=== PATIENT | male | born 1965 | race African-American/Black ===

== ENCOUNTER 2017-08-01 10:06 | Emergency (ER) | payer OTHER ==
[~2017-08-01] VITALS: Ht 165.1 cm; Wt 81.6 kg
[2017-08-01] MEDS ORDERED: VENTOLIN HFA18 GM INH (10:23)
[2017-08-01 10:54] VITALS: BP 119/79
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
--- NOTE | 2017-08-01 12:44 | Diagnostic Imaging Report ---
Indication: Orbital pain and Trauma Technique: Continuous helical transaxial imaging of the maxillofacial structures obtained without intravenous contrast administration. Coronal 2-D reformats were also obtained. Study obtained in a Siemens sensation [address] Automatic Exposure Control was utilized. Total Dose length Product (DLP): 577.[address] Dose Index Volume (CTDIvol): 28.19 mGy Comparison: None Findings: Left ORBIT: There is irregularity and slight diastases of the left frontal zygomatic suture in the lateral superior part of the orbit (for example image 19 series 6). There is a nondisplaced fracture of the lateral orbital wall slightly more posteriorly. In addition there is a mild fracture that is nondisplaced involving the anterior aspect of the orbital floor extending into the anterior wall the left maxillary sinus. There is a nondisplaced fracture of the posterior wall the left maxillary sinus. The zygomatic arch is intact. The left maxillary sinus is clear. The orbit itself is normal. There is no proptosis or retrobulbar hemorrhage. The pterygoids are intact. Right ORBIT: The right maxillary sinus is opacified. There is a fracture of the anterior wall the maxillary sinus and fracture of the medial wall of the right maxillary sinus. There is a nondisplaced fracture of the anterior aspect of the right orbital floor. Pterygoids are intact. There is a comminuted fracture of the right zygoma arch. There is no proptosis or retrobulbar hemorrhage. The globe is intact. IMPRESSION: Acute fractures of aspects of both orbits and maxilla as described above. The CT scanner at [facility] is accredited by the [employer] and the scans are performed using dose optimization techniques as appropriate to a performed exam including Automatic Exposure control.
[2017-08-01] MEDS ORDERED: FLONASE ALLERG9.9 ML NS (12:49)
[2017-08-01] MEDS ORDERED: PSEUDOEPHEDRINE60 MG PO (12:49)
[2017-08-01 15:06] VITALS: BP 129/88
== END 2017-08-01 13:00 | disposition home or self-care (01) ==
LOC: EMR 11:23
DX: R51 Headache (principal); S02.81XA Fracture of other specified skull and facial bones, right side, initial encounter for closed fracture; S02.40CA Maxillary fracture, right side, initial encounter for closed fracture; Y04.2XXA Assault by strike against or bumped into by another person, initial encounter; Y92.9 Unspecified place or not applicable; J45.909 Unspecified asthma, uncomplicated; Z91.013 Allergy to seafood; Z91.018 Allergy to other foods
CPT/HCPCS: 70486; 99283

== ENCOUNTER 2018-06-19 17:45 | Emergency (ER) | payer OTHER ==
[~2018-06-19] VITALS: Ht 165.1 cm; Wt 81.6 kg
[~2018-06-19 17:45] MED LIST: FLONASE ALLERG9.9 ML NS; PSEUDOEPHEDRINE60 MG PO; VENTOLIN HFA18 GM INH
[2018-06-19 17:53] VITALS: BP 108/67
--- NOTE | 2018-06-19 18:00 | NUR ---
ED Nurse Note: pt came in ambulatory from home. pt c/o abdominal pain 4/10 and black stool. pt states he takes multivitamins. pt denies n/v, coffee ground emesis. per pt has no history of gastric ulcers.
[2018-06-19] MEDS ORDERED: Mylanta II UD 30ml ORAL ONE (18:15)
--- NOTE | 2018-06-19 18:23 | NUR ---
ED Nurse Note: at the bedside
[2018-06-19 18:26] LABS: BASOPHILS % (AUTO) 1.6 % (0.0-2.0); EOSINOPHILS % (AUTO) 2.6 % (0.0-3.0); HEMOGLOBIN 14.5 G/DL (14.2-18.0); LYMPHOCYTES % (AUTO) 48.1 % (20.0-45.0); MEAN CORPUSCULAR VOLUME 89 FL (80-99); MONOCYTES % (AUTO) 10.5 % (1.0-10.0); NEUTROPHILS % (AUTO) 37.3 % (45.0-75.0); PLATELET COUNT 204 K/UL (150-450); RED BLOOD COUNT 4.96 M/UL (4.70-6.10); RED CELL DISTRIBUTION WIDTH 12.3 % (11.6-14.8); WHITE BLOOD COUNT 4.9 K/UL (4.8-10.8)
[2018-06-19 18:44] LABS: ANION GAP 9 mmol/L (5-15); BLOOD UREA NITROGEN 16 mg/dL (7-18); CALCIUM 9.9 MG/DL (8.5-10.1); CARBON DIOXIDE 25 MMOL/L (21-32); CHLORIDE 109 MMOL/L (98-107); POTASSIUM 4.4 MMOL/L (3.5-5.1); SODIUM 143 MMOL/L (136-145)
[2018-06-19 18:49] LABS: ALANINE AMINOTRANSFERASE 36 U/L (12-78); ALBUMIN 3.8 G/DL (3.4-5.0); ALBUMIN/GLOBULIN RATIO 1.2 (1.0-2.7); ALKALINE PHOSPHATASE 126 U/L (46-116); ASPARTATE AMINO TRANSFERASE 30 U/L (15-37); BILIRUBIN,TOTAL 0.4 MG/DL (0.2-1.0); CREATINE KINASE 472 U/L (26-308)
--- NOTE | 2018-06-19 19:15 | NUR ---
HAND-OFF: Report given to SANGEETHA Bragg.
--- NOTE | 2018-06-19 19:16 | NUR ---
ED Nurse Note: Received report from Rena/ SANGEETHA. Pt is A/O X 4. VSS.
[2018-06-19 19:19] LABS: APPEARANCE,URINE CLEAR; BILIRUBIN, URINE NEGATIVE (NEGATIVE); COLOR,URINE PALE YELLOW; GLUCOSE, URINE (UA) NEGATIVE (NEGATIVE); KETONES,URINE NEGATIVE (NEGATIVE); LEUKOCYTE ESTERASE ,URINE NEGATIVE (NEGATIVE); NITRITE,URINE NEGATIVE (NEGATIVE); PH,URINE 5 (4.5-8.0); PROTEIN,URINE NEGATIVE (NEGATIVE); UROBILINOGEN,URINE NORMAL MG/DL (0.0-1.0)
--- NOTE | 2018-06-19 20:21 | Emergency Room Report ---
History of Present Illness General Chief Complaint: Abdominal Pain Source: Patient Present Illness HPI Patient presents to the emergency department after passing black stool. He feels fullness in his abdomen. He states this feels like after eating a large dinner. The discomfort is more epigastric. He denies any vomiting or hematemesis. There is no nausea. He recently started taking multivitamin with iron. His mother was concerned that he might be bleeding internally. No fevers, chills, chest pain, palpitations, nausea, vomiting, diarrhea, dysuria , shortness of breath, depression, visual changes, headache. History of asthma and denies wheezing. Allergies: Coded Allergies: Shrimp (Verified Allergy, Unknown, 08/01/17) Uncoded Allergies: OKRA (Allergy, Unknown, 08/01/17) Patient History Past Medical History: see triage record Social History: Reports: smoking - Former; Denies: alcohol use, drug use Social History Narrative , oil field laborer Reviewed Nursing Documentation: PMH: Agreed; PSxH: Agreed Nursing Documentation-PMH Past Medical History: No History, Except For Hx Cardiac Problems: No Hx Hypertension: No Hx Pacemaker: No Hx Asthma: Yes Hx COPD: No Hx Diabetes: No Hx Cancer: No Hx Gastrointestinal Problems: No Hx Dialysis: No Hx Neurological Problems: No Hx Cerebrovascular Accident: No Hx Seizures: No Review of Systems All Other Systems: negative except mentioned in HPI Physical Exam Vital Signs Date Time Temp Pulse Resp B/P (MAP) Pulse Ox O2 Delivery O2 Flow Rate FiO2 06/19/18 17:53 98.8 85 20 108/67 99 Room Air Sp02 EP Interpretation: reviewed, normal General Appearance: well appearing, no apparent distress, GCS 15 Head: normocephalic Eyes: bilateral eye normal inspection, bilateral eye PERRL ENT: moist mucus membranes Neck: supple Respiratory: lungs clear, normal breath sounds Cardiovascular #1: regular rate, rhythm Cardiovascular #2: 2+ radial (R) Gastrointestinal: normal inspection, normal bowel sounds, non tender, no mass, non-distended Rectal: heme negative stool - Brown Genitourinary: no CVA tenderness Musculoskeletal: back normal, gait/station normal, normal range of motion Neurologic: alert, oriented x3, grossly normal Psychiatric: mood/affect normal Skin: normal inspection, warm/dry Medical Decision Making Diagnostic Impression: Primary Impression: Abdominal discomfort Additional Impression: Dark stools ER Course Patient presents with dark stools. Differential includes upper GI bleed, iron ingestion, other possible ingestions to discolor stool. Evaluation will be with labs. Initially the patient is unable to produce stool. He refuses rectal exam. Patient is treated with Zofran, Pepcid and Mylanta. EKG normal sinus rhythm. Labs with normal CBC. CMP normal. Lipase normal. When stool is finally produced it is guaiac negative. Pain is improved. Discussed findings with patient. Patient is stable for outpatient observation and treatment. Laboratory Tests Test 06/19/18 18:15 06/19/18 19:04 White Blood Count 4.9 K/UL (4.8-10.8) Red Blood Count 4.96 M/UL (4.70-6.10) Hemoglobin 14.5 G/DL (14.2-18.0) Hematocrit 44.0 % (42.0-52.0) Mean Corpuscular Volume 89 FL (80-99) Mean Corpuscular Hemoglobin 29.2 PG (27.0-31.0) Mean Corpuscular Hemoglobin Concent 33.0 G/DL (32.0-36.0) Red Cell Distribution Width 12.3 % (11.6-14.8) Platelet Count 204 K/UL (150-450) Mean Platelet Volume 8.0 FL (6.5-10.1) Neutrophils (%) (Auto) 37.3 % (45.0-75.0) L Lymphocytes (%) (Auto) 48.1 % (20.0-45.0) H Monocytes (%) (Auto) 10.5 % (1.0-10.0) H Eosinophils (%) (Auto) 2.6 % (0.0-3.0) Basophils (%) (Auto) 1.6 % (0.0-2.0) Prothrombin Time 10.8 SEC (9.30-11.50) Prothrombin Time INR 1.0 (0.9-1.1) PTT 20 SEC (23-33) L Sodium Level 143 MMOL/L (136-145) Potassium Level 4.4 MMOL/L (3.5-5.1) Chloride Level 109 MMOL/L (98-107) H Carbon Dioxide Level 25 MMOL/L (21-32) Anion Gap 9 mmol/L (5-15) Blood Urea Nitrogen 16 mg/dL (7-18) Creatinine 1.0 MG/DL (0.55-1.30) Estimate Glomerular Filtration Rate > 60 mL/min (>60) Glucose Level 96 MG/DL (74-106) Calcium Level 9.9 MG/DL (8.5-10.1) Total Bilirubin 0.4 MG/DL (0.2-1.0) Aspartate Amino Transferase (AST) 30 U/L (15-37) Alanine Aminotransferase (ALT) 36 U/L (12-78) Alkaline Phosphatase 126 U/L (46-116) H Total Creatine Kinase 472 U/L (26-308) H Total Protein 6.9 G/DL (6.4-8.2) Albumin 3.8 G/DL (3.4-5.0) Globulin 3.1 g/dL Albumin/Globulin Ratio 1.2 (1.0-2.7) Lipase 157 U/L (73-393) Urine Color Pale yellow Urine Appearance Clear Urine pH 5 (4.5-8.0) Urine Specific [place] 1.025 (1.005-1.035) Urine Protein Negative (NEGATIVE) Urine Glucose (UA) Negative (NEGATIVE) Urine Ketones Negative (NEGATIVE) Urine Blood Negative (NEGATIVE) Urine Nitrite Negative (NEGATIVE) Urine Bilirubin Negative (NEGATIVE) Urine Urobilinogen Normal MG/DL (0.0-1.0) Urine Leukocyte Esterase Negative (NEGATIVE) EKG Diagnostic Results Rate: normal Rhythm: NSR ST Segments: no acute changes Rhythm Strip Diag. Results EP Interpretation: yes Rhythm: NSR, no PVC's, no ectopy Last Vital Signs Date Time Temp Pulse Resp B/P (MAP) Pulse Ox O2 Delivery O2 Flow Rate FiO2 06/19/18 17:53 85 20 Room Air 06/19/18 17:53 98.8 108/67 99 Status: improved Disposition: HOME, SELF-CARE Condition: Improved Scripts Famotidine (PEPCID AC) 20 Mg Tablet 20 MG PO DAILY, #20 TAB Prov: Good Villa MD 06/19/18 Referrals: [facility]ERR[facility] (PCP) Good Villa MD Jun 19, 2018 20:21
[2018-06-19] MEDS ORDERED: PEPCID AC20 M2 PO (20:22)
[2018-06-19 20:28] VITALS: BP 107/65
--- NOTE | 2018-06-19 20:28 | NUR ---
ED Nurse Note: Pt has seen by . all orders carried out. D/c instruction and prescription given to Pt and verbalized understanding. IV/ ID band removed. Pt d/c from ED with steady gait and all his belongings.
== END 2018-06-19 20:28 | disposition home or self-care (01) ==
LOC: EMR 18:00
DX: R10.9 Unspecified abdominal pain (principal); R19.5 Other fecal abnormalities; J45.909 Unspecified asthma, uncomplicated; Z91.013 Allergy to seafood; Z91.018 Allergy to other foods
CPT/HCPCS: 36415; 80053; 81003; 82550; 83690; 85025; 85610; 85730; 93005; 99283

== ENCOUNTER 2018-11-26 15:55 | Emergency (ER) | payer OTHER ==
[~2018-11-26] VITALS: Ht 162.6 cm; Wt 79.4 kg
[~2018-11-26 15:55] MED LIST changes: +PEPCID AC20 M2 PO
--- NOTE | 2018-11-26 16:35 | Emergency Room Report ---
History of Present Illness General Chief Complaint: Upper Respiratory Illness Source: Patient Present Illness HPI 53-year-old male with significant history of tobacco smoker here complaining of 2 weeks of productive cough with green phlegm. Patient denies fever chills, complains of minimal sore throat, and congestion. Patient has not been taking any medication other than DayQuil and NyQuil for his symptoms. Patient continues to smoke daily. Denies shortness of breath, wheezing, nausea vomiting , palpitation, abdominal pain, and all other associated symptoms. Patient is in no apparent distress Allergies: Coded Allergies: Shrimp (Verified Allergy, Unknown, 08/01/17) Uncoded Allergies: OKRA (Allergy, Unknown, 08/01/17) Patient History Past Medical History: see triage record Past Surgical History: unable to obtain Pertinent Family History: none Social History: Reports: smoking - tobacco Immunizations: UTD Reviewed Nursing Documentation: PMH: Agreed; PSxH: Agreed Nursing Documentation-PMH Past Medical History: No History, Except For Hx Cardiac Problems: No Hx Hypertension: No Hx Pacemaker: No Hx Asthma: Yes Hx COPD: No Hx Diabetes: No Hx Cancer: No Hx Gastrointestinal Problems: No Hx Dialysis: No Hx Neurological Problems: No Hx Cerebrovascular Accident: No Hx Seizures: No Review of Systems All Other Systems: negative except mentioned in HPI Physical Exam Vital Signs Date Time Temp Pulse Resp B/P (MAP) Pulse Ox O2 Delivery O2 Flow Rate FiO2 11/26/18 16:14 98.6 101 18 99/74 (82) 93 Room Air Sp02 EP Interpretation: reviewed, normal General Appearance: normal inspection, well appearing, no apparent distress, alert Head: normocephalic, atraumatic Eyes: bilateral eye normal inspection, bilateral eye PERRL ENT: normal ENT inspection, hearing grossly normal, normal pharynx, no angioedema, TMs + canals normal, uvula midline, moist mucus membranes Neck: normal inspection, full range of motion, supple, thyroid normal Respiratory: chest non-tender, no rhonchi, wheezing Cardiovascular #1: normal inspection, no edema, no murmur, normal capillary refill Gastrointestinal: normal inspection, normal bowel sounds, non tender, soft Genitourinary: no CVA tenderness Musculoskeletal: normal inspection, back normal, normal range of motion Neurologic: normal inspection, alert, oriented x3 Psychiatric: normal inspection, judgement/insight normal Skin: normal inspection, normal color, no rash Lymphatic: normal inspection, no adenopathy Medical Decision Making PA Attestation All my diagnosis and treatment plans were reviewed ad discussed with my supervising physician Dr. Villa Diagnostic Impression: Primary Impression: Acute bacterial bronchitis ER Course 53-year-old male with significant history of tobacco smoker here complaining of 2 weeks of productive cough with green phlegm. Patient denies fever chills, complains of minimal sore throat, and congestion. Patient has not been taking any medication other than DayQuil and NyQuil for his symptoms. Patient continues to smoke daily. Denies shortness of breath, wheezing, nausea vomiting , palpitation, abdominal pain, and all other associated symptoms. Patient is in no apparent distress Ddx considered but are not limited to: bronchitis, PNA, URI viral, bacterial brochitis Vital signs: are WNL, pt. is afebrile H&PE are most consistent with: Bacterial bronchitis secondary to smoking ORDERS: Levaquin, Phenergan DM, Medrol Dosepak, albuterol inhaler ED INTERVENTIONS: None required at this time. DISCHARGE: At this time pt. is stable for d/c to home. Will provide printed patient care instructions, and any necessary prescriptions. Care plan and follow up instructions have been discussed with the patient prior to discharge. Follow-up with your primary doctor if symptoms continue avoid smoking no checks x-ray necessary at this point as no crackles or rhonchi were heard Last Vital Signs Date Time Temp Pulse Resp B/P (MAP) Pulse Ox O2 Delivery O2 Flow Rate FiO2 11/26/18 16:14 98.6 101 18 99/74 (82) 93 Room Air Disposition: HOME, SELF-CARE Condition: Stable Scripts Methylprednisolone (Methylprednisolone*) 4MG Dspk 4 MG ORAL DIRECTED for 6 Days, #21 EA 0 Refills Day 1: Two tablets before breakfast, one after lunch, one after dinner, and two at bedtime. If started late in the day, take all six tablets at once or divide into two or three doses, unless otherwise directed by prescriber. Day 2: One tablet before breakfast, one after lunch, one after dinner, and two at bedtime Day 3: One tablet before breakfast, one after lunch, one after dinner, and one at bedtime Day 4: One tablet before breakfast, one after lunch, and one at bedtime Day 5: One tablet before breakfast and one at bedtime Day 6: One tablet before breakfast Prov: Rian Houston 11/26/18 Promethazine Hcl (PROMETHAZINE HCL*) 6.25 Mg/5 Ml Syrup 5 ML ORAL Q6H, #120 ML 0 Refills Prov: Rian Houston 11/26/18 Levofloxacin* (LEVAQUIN*) 750 Mg Tablet 750 MG ORAL DAILY for 7 Days, #7 TAB Prov: Rian Houston 11/26/18 Patient Instructions: Acute Bronchitis, [id number] Additional Instructions: Take medication as directed follow-up with a primary care provider if symptoms continue reduce your smoking Rian Houston Nov 26, 2018 16:34
[2018-11-26] MEDS ORDERED: LEVAQUIN750 MG ORAL (16:36)
[2018-11-26] MEDS ORDERED: MEDROL DOSEPAK4 MG ORAL (16:36)
[2018-11-26] MEDS ORDERED: PROMETHAZI6.25 MG/1 ORAL (16:36)
[2018-11-26 16:57] VITALS: BP 99/74
== END 2018-11-26 16:55 | disposition home or self-care (01) ==
LOC: EMR 16:50
DX: J20.9 Acute bronchitis, unspecified (principal); F17.200 Nicotine dependence, unspecified, uncomplicated; Z91.013 Allergy to seafood
CPT/HCPCS: 99282

== ENCOUNTER 2020-04-26 09:11 | Emergency (ER) | payer OTHER ==
[~2020-04-26] VITALS: Ht 165.1 cm; Wt 74.8 kg
[~2020-04-26 09:11] MED LIST changes: +LEVAQUIN750 MG ORAL; +MEDROL DOSEPAK4 MG ORAL; +PROMETHAZI6.25 MG/1 ORAL
--- NOTE | 2020-04-26 09:30 | NUR ---
ED Nurse Note: Pt ambulated to ED from home for follow-up regarding his hx of hernia that has been going on for 8 mos. Pt is AOx4, calm and cooperative to care, VSS, on RA, afebrile on triage.
[2020-04-26 09:45] VITALS: BP 111/68
--- NOTE | 2020-04-26 09:47 | NUR ---
ED Nurse Note: ERMD at bedside.
[2020-04-26 10:07] VITALS: BP 112/69
--- NOTE | 2020-04-26 10:07 | NUR ---
ER DISCHARGE NOTE: Patient is cleared to be discharged per ERMD, pt is aox4, on room air, with stable vital signs. pt was given dc and prescription instructions, pt was able to verbalize understanding, pt id band removed. pt is able to ambulate with steady gait. pt took all belongings.
--- NOTE | 2020-05-02 13:50 | Emergency Room Report ---
History of Present Illness General Chief Complaint: General Complaint Source: Patient Present Illness HPI 54-year-old male presents to ED for evaluation. Patient is here because he has a hernia. States he has had a hernia for about 8 months now. Denies pain. Wants to have it checked out. Denies any nausea or vomiting. no other aggravating relieving factors. 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 Hx Hypertension: No Hx Pacemaker: No Hx Asthma: Yes Hx COPD: No Hx Diabetes: No Hx Cancer: No Hx Gastrointestinal Problems: No Hx Dialysis: No Hx Neurological Problems: No Hx Cerebrovascular Accident: No Hx Seizures: No Review of Systems All Other Systems: negative except mentioned in HPI Physical Exam Sp02 EP Interpretation: reviewed, normal General Appearance: no apparent distress, alert, GCS 15, non-toxic Head: normocephalic, atraumatic Eyes: bilateral eye normal inspection, bilateral eye PERRL ENT: hearing grossly normal, normal pharynx, no angioedema, normal voice Neck: full range of motion, supple/symm/no masses Respiratory: chest non-tender, lungs clear, normal breath sounds, speaking full sentences Cardiovascular #1: regular rate, rhythm, no edema Cardiovascular #2: 2+ carotid (R), 2+ carotid (L), 2+ radial (R), 2+ radial (L), 2+ dorsalis pedis (R), 2+ dorsalis pedis (L) Gastrointestinal: normal bowel sounds, non tender, soft, non-distended, no guarding, no rebound Rectal: deferred Genitourinary: normal inspection, no CVA tenderness, other - reducible R inguinal hernia Musculoskeletal: back normal, normal range of motion, gait/station normal, non- tender Neurologic: alert, motor strength/tone normal, oriented x3, sensory intact, responsive, speech normal Psychiatric: judgement/insight normal, memory normal, mood/affect normal, no suicidal/homicidal ideation Reflexes: 3+ bicep (R), 3+ bicep (L), 3+ tricep (R), 3+ tricep (L), 3+ knee (R), 3+ knee (L) Lymphatic: no adenopathy Medical Decision Making Diagnostic Impression: Primary Impression: Inguinal hernia Qualified Codes: K40.91 - Unilateral inguinal hernia, without obstruction or gangrene, recurrent ER Course Hospital Course 54-year-old male presents for evaluation of possible hernia Differential diagnosis includes-appendicitis, cholecystitis, small bowel obstruction, gastritis, Clinical course Patient placed on stretcher. After initial history, physical exam reveals male in no acute distress. A mild swelling to the right inguinal area. Reducible. Bowel sounds present. Abdomen soft. Discussed findings with patient. Consistent with a reducible hernia. No signs of clinical obstruction. Safe for discharge and close outpatient follow-up. I will provide referrals to surgery. Patient can electively have this repaired on outpatient basis. I feel this is a highly complex case requiring extensive working including EKG/Rhythm strip, Xray/CT/US, Blood/urine lab work, repeat exams while in ED, and administration of strong opiates/narcotics for pain control, admission to hospital or close patient follow up. Diagnosis - inguinal hernia Stable and discharged to home. Followup with PMD/surgery. Return to ED if symptoms recur or worsen Status: improved Disposition: HOME, SELF-CARE Condition: Stable Referrals: NOT CHOSEN [facility]/,REFERRING [facility] Patient Instructions: Inguinal Hernia, Adult, [id number] Alex Oakes MD May 02, 2020 13:50
== END 2020-04-26 10:07 | disposition home or self-care (01) ==
LOC: EMR 09:40
DX: K40.91 Unilateral inguinal hernia, without obstruction or gangrene, recurrent (principal); Z91.013 Allergy to seafood; Z91.018 Allergy to other foods; M19.90 Unspecified osteoarthritis, unspecified site
CPT/HCPCS: 99282